=== PATIENT | male | born 1985 | race Two or more races ===

== ENCOUNTER 2025-01-14 16:28 | Inpatient (IN) | payer OTHER, SELFPAY ==
--- OUTSIDE RECORDS SUMMARY | 2025-01-14 16:36 | XMS_ITS | Clinical Summary ---
Author Organization [employer] [facility] iance Address [address] [place] [address] Care Team Providers Care Practical Nursing Teacher Name Role Phone Madina Oropeza MD Primary Care Provider [phone] Nguyễn Laguerre MD Unavailable Allergies No known active allergies Medications divalproex (DEPAKOTE) 250 MG EC tabletIndication s:Bipolar affective disorder, remission status unspecified (HCC) Take 750 mg by mouth in the morning and 750 mg before bedtime. 5 Active OLANZapine (ZYPREXA) 15 MG tabletIndication s:Bipolar affective disorder, remission status unspecified (HCC) Take 15 mg by mouth nightly 5 Active QUEtiapine (SEROQUEL) 50 MG tablet Take 1 tablet by mouth at bedtime 30 tablet 5 Active diclofenac (VOLTAREN) 1 % GEL GelIndications:C hronic pain of both knees Apply 2 g topically in the morning and 2 g at noon and 2 g in the evening and 2 g before bedtime. 100 g 1 5 12/23/19 25 Active Problems Problem Noted Date Diagnosed Date Bipolar disorder 09/23/2024 Suicide ideation 09/23/2024 Encounters Date Type Department Care Team Description 10/16/2024 4:00 PM EDT Office Visit [facility] [address] [place] [address] Floor - [phone] [place] [address] Cass Germain APRN Evaluation 10/16/2024 Travel from Last 3 Months Family History Medical History Relation Comments Heart Disease Brother CHF No Known Problems Father Cancer - Other Maternal Grandmother breast canc er Heart Disease Mother s/p mitral valve replacement Diabetes Paternal Grandmother Relation Status Comments Brother Alive Father Alive Maternal Grandmother Mother Paternal Grandmother Son Alive Social History Tobacco Use Types Packs/Day Years Used Date Smoking Tobacco: Some Days Cigarettes Smokeless Tobacco: Never Tobacco Cessation:Counseling Given: Not Answered Comments:Occasionally Alcohol Use Standard Drinks/Week Comments Not Currently 0 (1 standard drink = 0.6 oz pur e alcohol) Sex and Gender Information Value Date Recorded Sex Assigned at Not on file Legal Sex Male 9:17 AM EST Gender Identity Male 07/25/2024 9:19 AM EST Sexual Orientation Straight 07/25/2024 9: 19 AM EST 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 Not on file Not on file Not on file Last Filed Vital Signs Vital Sign Reading Time Taken Comments Blood Pressure 121/73 10/03/2024 8:13 AM EDT Pulse 64 10/03/2024 8:13 AM EDT Temperature 36.6 C (97.9 F) 10/03/2024 8:13 AM EDT Respiratory Rate 16 10/03/2024 8:13 AM EDT Oxygen Saturation 99% 10/03/2024 8:13 AM EDT Inhaled Oxygen Concentration - - Weight 84.8 kg (187 lb) 09/23/2024 2:21 PM EDT Height 171 cm (5' 7.32 ) 09/23/2024 2:21 PM EDT Body Mass Index 29.01 09/23/2024 2:21 PM EDT Plan of Treatment Health Maintenance Due Date Last Done Comments HEALTH CARE PROXY 2002 TETANUS VACCINE (1 - Tdap) 2002 PNEUMOCOCCAL VACCINE SERIES (< 65) (1 of 2 - PCV) 2003 COVID-19 Vaccine (1 - season) 2024 INFLUENZA VACCINE (#1) 2025 Contraceptive Care Screening 09/23/2025 09/23/2024 Smoking/Tobacco Cessation Counseling 09/23/2025 09/23/2024 (Completed at [facility]) AWQ Questionnaire 10/16/2025 10/16/2024, 09/23/2024 LIPID SCREENING 09/23/2029 09/23/2024 ZOSTER VACCINE (1 of 2) 2034 HEP C SCREEN Completed 09/23/2024 HIV SCREENING Completed 09/23/2024 PHYSICAL EXAM Completed 09/23/2024 Procedures Procedure Name Priority Date/Time Associated Diagnosis Comments HEPATITIS C PCR QUAL TO QUANT Routine 09/23/2024 3:15 PM EDT Encounter to establish care HIV ANTIGEN ANTIBODY 5TH GEN Routine 09/23/2024 3:15 PM EDT Encounter to establish care HC LIPID PANEL Routine 09/23/2024 3:15 PM EDT Encounter to establish care from Last 3 Months or Most Recently Relevant to Health Maintenance Results * HIV ANTIGEN ANTIBODY 5TH GEN (09/23/2024 3:15 PM EDT) HIVAGAB QUALITATIVE NON-REAC TIVE NONREACTIVE [facility] Comment: This sample is negative for HIV-1 Antibody (Groups M and O), HIV-2 Antibody, and HIV-1 p24 Antigen. No further testing is required. The differentiation tests will be reported as Test Not Performed (TNP). HIV-1 ANTIBODY 5TH GEN TNP 0.00 - 0.99 INDEX [facility] HIV-2 ANTIBODY 5TH GEN TNP 0.00 - 0.99 INDEX [facility] HIV-1 ANTIGEN 5TH GEN TNP 0.00 - 0.99 INDEX [facility] HIV-1 ANTIBODY GEENIUS TNP [facility] HIV-2 ANTIBODY GEENIUS TNP [facility] HIV RESULT INTERPRETATION TNP [facility] 09/23/2024 3:15 PM EDT 09/23/2024 6:19 PM EDT Narrative [facility] - 09/24/2024 12:02 PM EDT PRIOR TO ORDERING, was verbal consent obtained? (Verbal consent by the patient or designee is REQUIR ED to order this test.)->YES Catia Rankin PA-C LABORATORY Final Re sult [facility] [address] [place] [address], [place] * HEPATITIS C PCR QUAL TO QUANT (09/23/2024 3:15 PM EDT) HEPATITIS C ANTIBODY NON-REACT RIAN NONREACTIVE [facility] 09/23/2024 3:15 PM EDT 09/23/2024 6:19 PM EDT Catia Rankin PA-C LABORATORY Final Re sult [facility] [address] [place] [address], [place] * (ABNORMAL) LIPID PANEL (09/23/2024 3:15 PM EDT) Cholesterol 162 0 - 239 mg/dL [facility] TRIGLYCERIDES 170(H) 0 - 150 mg/dL [facility] HIGH DENSITY LIPOPROTEIN 41 40 - 60 mg/dL [facility] LOW DENSITY LIPOPROTEIN DIRECT 97 0 - 189 mg/dL [facility] 09/23/2024 3:15 PM EDT 09/23/2024 6:19 PM EDT Catia Rankin PA-C LABORATORY Final Re sult Performing Organization Address City/[facility]/ZIP Co de Phone Number [facility] [address] [place] [address], from Last 3 Months or Most Recently Relevant to Health Maintenance [place] [address] [place] [address] [employer] [facility] Care Teams Practical Nursing Teacher Relationship Specialty Start Date End Date Madina Oropeza MD [address] [place] [id number] PCP - General Family Medicine 09/23/24 Nguyễn Laguerre MD [address] [place] [address], [address] [place] [address] PCP - Insurance PCP 09/23/24
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
[2025-01-14 16:50] VITALS: BP 139/99; PULSE 69; RESP 18; TEMP 36.1; O2SAT 98
[2025-01-14 17:40] VITALS: BMI 28.7
--- NOTE | 2025-01-14 18:17 | PC.ADMIT ---
Bev arrived from [facility] 16:45? on a CV for insomnia. He has a history of bipolar disorder, and one suicide attempt in 2018 via hanging. His medical history includes an umbilical hernia and chronic back pain and knee pain. Per the crisis evaluation, he presented multiple times over the course of three days due to inability to sleep. He wears sunglasses at all times. When asked he states that he does this because his eyes itch. He is currently euphoric, expansive, and disorganized. He is as cooperative as he can be, but limited by disorganization. When meeting with the road oiler and provider to start the admission process he was also attempting to play [employer]. He often repeats whatever is said to him and asks unusual questions like ?how many milliseconds did it take me to put away the game?? Whether he is speaking Sri Lankan or Portuguese (he is more comfortable in Portuguese at least for now), some of his remarks are nonsensical. He is aware of some things, like that the last hospital told him to take divalproex and olanzapine, and today?s date. While the report from the sending hospital stated no AVH, he stated upon arrival that he does hear 5 voices all the time, but that they do not command him to do things. He denies SI/HI, ?I love my life!? Skin check was normal. Tox was negative though he does endorse THC use. He is a smoker of an unknown quantity of cigarettes daily and is using nicotine gum. Bev is on 15 minute checks.
[2025-01-14 20:00] VITALS: BP 118/89; PULSE 96; RESP 16; TEMP 36.1; O2SAT 98
--- NOTE | 2025-01-14 22:30 | PC.NURSE ---
He is currently euphoric, expansive, and disorganized. He appears confused at times. He took his belongings and walk towards the exit door @ 2215.. Pt states I am going home however he was easily redirected and took PRN meds @ 2230.
[2025-01-15 08:00] VITALS: BP 146/83; PULSE 83; RESP 18; TEMP 35.7; O2SAT 98
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
[2025-01-15 08:32] LABS: Hemoglobin A1C 147.9697 umol/L; Total Hemoglobin (HGBA1C) 4048.4204 umol/L
[2025-01-15 08:42] LABS: Alanine Aminotransferase 34 U/L (0-40); Albumin Level 4.1 g/dL (3.5-5.0); Alkaline Phosphatase 89 U/L (39-117); Anion Gap 12 (12-20); Aspartate Amino Transferase 59 U/L (5-37); Blood Urea Nitrogen 13 mg/dL (9-16); Calcium 9.2 mg/dL (8.4-10.2); Carbon Dioxide 23 mmol/L (22-29); Chloride 109 mmol/L (96-108); Cholesterol 128 mg/dL (<200); Creatinine Clr Calc Pharmacy 124.1; Estimated Glomerular Filt Rate > 60; HDL Cholesterol 39 mg/dL (>40); Potassium 3.9 mmol/L (3.3-5.1); Sodium 140 mmol/L (135-145); Total Protein 6.7 g/dL (6.5-8.0); Triglycerides 185 mg/dL (<150)
[2025-01-15 08:58] LABS: Free T4 (Free Thyroxine) 1.21 ng/dL (0.71-1.85); Thyroid Stimulating Hormone 1.78 uIU/mL (0.32-4.0)
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
--- NOTE | 2025-01-15 13:07 | PC.NURSE ---
Zacarias was restrained for a blood draw to monitor serum levels of Michael?s order Depakote, liver function, and ammonia level. He refused to have the blood draw done, explaining that he is being held in the hospital and medicated against his will. This is accurate, as Zacarias is currently on Section 8 with Michael?s order medications. When he was told that he would need this lab work, he stated that we would need to call security as he would not consent to the treatment. Phlebotomy arrived on the unit, followed by security as suggested by the patient. He stated that he would not offer his arm but we would need to pull it out to take his blood. He accused the staff of being vampires. At 11:48 Security extended Zacarias? arm to allow for access to the vein. Zacarias made a loud, high pitched vocalization, startling staff. Due to his unpredictable behavior he was laid down on the bed with one staff member holding each limb. He did not resist the hold with any force but did continue to make high pitched vocalizations throughout. The blood draw was successful on the first attempt, the specimen was obtained, and Zacarias was immediately released. He appeared uninjured, did not complain of injury, and refused vital sign monitoring.
[2025-01-15] MEDS: Lidocaine 4 % Patch ADH..PATCH 1 PATCH TRANSDERMA (18:55)
[2025-01-15 20:00] VITALS: BP 128/83; PULSE 91; RESP 16; TEMP 36.4; O2SAT 99
[2025-01-15] MEDS: Divalproex Sodium ER 250 MG TAB.ER.24H 750 MG PO (20:59)
[2025-01-16 07:00] VITALS: BMI 29.9
[2025-01-16 08:00] VITALS: BP 137/89; PULSE 101; RESP 18; TEMP 36.5; O2SAT 97
--- NOTE | 2025-01-16 09:49 | HO.PSYCHPN ---
Subjective Subjective Date of Service: 01/16/25 Reason For Visit: Bipolar Subjective Notes: Conditional Voluntary Interim History: Patient interviewed by this provider and social services designee. Patient notes that he is feeling good. He feels safe in this environment. He recalls being contacted by the [employer] to be enlisted in the [employer]. He also recalls the homeless people trying to destroy the city; he wants to protect the city but does not want to harm the homeless individuals. He wants to go home to get back to his 2 jobs and caring for their 7-year-old child. He retracted his 3 day noticed today. He denies anxiety or depression. He denies SI/HI/AH/VH. Patient is Serbian speaking mostly. 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 Medication Compliance: Yes Side effects from medications: No Attending Groups: Intermittent Review of Systems Acute medical concerns: No Mental Status Exam Mental Status Exam Narrative: Appearance: Casually dressed, adequate hygiene Behavior: Calm and cooperative throughout the interview. Eye contact is appropriate, and there are no signs of psychomotor agitation or retardation Speech: Normal volume and prosody, talkative Thought process: logical and goal-directed Thought content: Linear, paranoia Mood: Calm Affect: Constricted SI:denies HI:denies VH/AH:none Delusions: Paranoid Insight/judgment: Impaired insight and judgment Memory/cog: Alert, oriented x 4. grossly intact to conversational testing Diagnostics Vital Signs (24Hr): Vital Signs - 24 hr 01/15/25 20:00 01/16/25 08:00 Temperature 97.6 F 97.7 F Pulse Rate 91 101 H Respiratory Rate 16 18 Blood Pressure 128/83 137/89 Pulse Oximetry 99 97 Oxygen Delivery Method Room Air Room Air BMI result Body Mass Index 28.7 Labs 01/15/25 07:41 Labs: Laboratory Results - last 48 hr 01/15/25 07:41 Sodium 140 Potassium 3.9 Chloride 109 H Carbon Dioxide 23 Anion Gap 12 BUN 13 Creatinine 0.79 Estim Creat Clear Calc 124.1 Estimated GFR > 60 Random Glucose 158 H Estimat Average Glucose 111 Hemoglobin A1c % 5.5 Calcium 9.2 Total Bilirubin 0.4 AST 59 H ALT 34 Alkaline Phosphatase 89 Total Protein 6.7 Albumin 4.1 Triglycerides 185 H Cholesterol 128 LDL Cholesterol, Calc 52 HDL Cholesterol 39 L TSH 1.78 Free T4 1.21 Medications Medications Current Medications Acetaminophen (Acetaminophen 325 Mg Tablet) 650 mg PO Q6H PRN PRN Reason: Headache/Pain, Scale 1-10 Last Admin: 01/15/25 20:59 Dose: 650 mg Al Hydroxide/Mg Hydroxide (Magnesium Hydrox/Alum Hydrox 30 Ml Oral.Susp) 30 ml PO Q6H PRN PRN Reason: Heartburn/Nausea Divalproex Sodium (Divalproex Sodium Er 250 Mg Tab.Er.24h) 750 mg PO BEDTIME JAGUAR Last Admin: 01/15/25 20:59 Dose: 750 mg Docusate Sodium (Docusate Sodium 100 Mg Capsule) 100 mg PO BID [facility] Last Admin: 01/16/25 08:30 Dose: 100 mg Hydroxyzine HCl (Hydroxyzine Hcl 25 Mg Tablet) 25 mg PO Q6H PRN PRN Reason: mild anxiety Last Admin: 01/14/25 22:21 Dose: 25 mg Lidocaine (Lidocaine 4 % Patch Adh..Patch) 1 patch TRANSDERMA DAILY PRN; Protocol PRN Reason: Lowe back pain Last Admin: 01/15/25 18:55 Dose: 1 patch Magnesium Hydroxide (Milk Of Magnesia 30 Ml Oral.Susp) 30 ml PO DAILY PRN PRN Reason: Constipation Nicotine (Nicotine 21 Mg Patch.Td24) 21 mg TRANSDERMA DAILY PRN PRN Reason: nicotine craving Nicotine Polacrilex (Nicotine Polacrilex 2 Mg Gum) 4 mg BUCCAL Q2H PRN PRN Reason: nicotine cravings Last Admin: 01/16/25 09:30 Dose: 4 mg Olanzapine (Olanzapine 5 Mg Tablet) 5 mg PO BID PRN PRN Reason: agitation Last Admin: 01/16/25 08:46 Dose: 5 mg Olanzapine (Olanzapine 10 Mg Tablet) 10 mg PO BEDTIME JAGUAR Last Admin: 01/15/25 20:59 Dose: 10 mg Trazodone HCl (Trazodone Hcl 50 Mg Tablet) 50 mg PO BEDTIME MRX1 PRN PRN Reason: Insomnia Last Admin: 01/15/25 20:59 Dose: 50 mg Allergies Allergies Allergy/AdvReac Type Severity Reaction Status Date / Time No Known Allergies Allergy Verified 01/14/25 16:39 Assessment & Plan Assessment & Plan (1) Bipolar I disorder: Status: Acute Code(s): F31.9 - Bipolar disorder, unspecified Plan Patient is a 39 yo male with hx of Bipolar disorder (r/o schizoaffective), who presents for manic episode. -no sleep for about a week, with excess energy [place] map and Map was telling him to do a few things like cleaning...then a series of things happened...the next morning a homeless person interaction...i was defending myself...he did like a ninja and he took out shackles and I had to deal with him; i was on a mission and the mission was i needed to eliminate the homeless, not kill them but to get them out of the station...voice told him so... the homeless are not the owners of the metro.... voice coming from the map...But then they [police] arrested me.. -hears gods voice, tells me what to do, read the bible, take care of kids -hx of depressive episodes -hx of Manic episodes: 6 days little sleep; lot of energy and walking non-stop, not eating, couldn't stop moving...behaviors were different than usual...waking up at night; it's affecting his relationship with 01/16: Patient notes that he is feeling good. He feels safe in this environment. He recalls being contacted by the [employer] to be enlisted in the [employer]. He also recalls the homeless people trying to destroy the city; he wants to protect the city but does not want to harm the homeless individuals. He wants to go home to get back to his 2 jobs and caring for their 7-year-old child. He retracted his 3 day noticed today. He denies anxiety or depression. He denies SI/HI/AH/VH. Continue current treatment regimen. PLAN cv q15 agrees to restart Depakote Agrees to restart zyprexa Patient educated on: therapeutic strategies Reason for continued inpatient stay Substantial Risk for: rapid decompensation Time Spent With Patient Time: Total time managing care of this patient today ____ minutes.
[2025-01-16] MEDS: Divalproex Sodium ER 250 MG TAB.ER.24H 750 MG PO (20:29)
[2025-01-16 20:43] VITALS: BP 142/81; PULSE 127; RESP 16; TEMP 35.8; O2SAT 98
[2025-01-17] MEDS: Milk of Magnesia 30 ML ORAL.SUSP PO (05:44)
[2025-01-17 08:00] VITALS: BP 129/93; PULSE 87; RESP 18; TEMP 36.4; O2SAT 96
--- NOTE | 2025-01-17 10:02 | HO.PSYCHPN ---
Subjective Subjective Date of Service: 01/17/25 Reason For Visit: Bipolar Interim History: met with pt; discussed with team; reviewed chart; seen with Personalized Living Manager (Tawanna) yesterday staff reports pt was intermittently not making sense, going on off on irrelevant tangents; today however, seems more linear Pt says he's excellent I saw beautiful sunrise. I feel strong to go and live my life... regarding map and mission to get rid of the homeless pt says that was a product of paranoia....that's not my job, that's the [employer] job... It happened [paranoia] because I was without sleep and i was with psychosis... thinks better since sleeping and medication depakote...only reason he stopped in past, was because he ran out of medications...says has pending appointment 01/24/25 this happens when he does not take his meds Mental Status Exam Mental Status Exam Narrative: Pt is alert and oriented; behavior is cooperative, friendly and calm; patient is not in distress; dressed in casual attire with adequate grooming and hygiene; mood is described as excellent and affect congruent; eye contact appropriate; Speech is normal rate, volume and prosody and not pressured; no psychomotor agitation/retardation present; thought process is more organized and goal directed; Thought content is on tx; denies paranoid ideations; denies any SI/HI. Denies AVH and does not seem to be internally preoccupied. Patients insight and judgment improving. Diagnostics Vital Signs (24Hr): Vital Signs - 24 hr 01/16/25 20:43 01/17/25 08:00 Temperature 96.5 F L 97.5 F Pulse Rate 127 H 87 Respiratory Rate 16 18 Blood Pressure 142/81 H 129/93 H Pulse Oximetry 98 96 Oxygen Delivery Method Room Air Room Air BMI result Body Mass Index 29.9 Labs 01/15/25 07:41 Medications Medications Current Medications Acetaminophen (Acetaminophen 325 Mg Tablet) 650 mg PO Q6H PRN PRN Reason: Headache/Pain, Scale 1-10 Last Admin: 01/15/25 20:59 Dose: 650 mg Al Hydroxide/Mg Hydroxide (Magnesium Hydrox/Alum Hydrox 30 Ml Oral.Susp) 30 ml PO Q6H PRN PRN Reason: Heartburn/Nausea Divalproex Sodium (Divalproex Sodium Er 250 Mg Tab.Er.24h) 750 mg PO BEDTIME JAGUAR Last Admin: 01/16/25 20:29 Dose: 750 mg Docusate Sodium (Docusate Sodium 100 Mg Capsule) 100 mg PO BID JAGUAR Last Admin: 01/17/25 08:41 Dose: 100 mg Hydroxyzine HCl (Hydroxyzine Hcl 25 Mg Tablet) 25 mg PO Q6H PRN PRN Reason: mild anxiety Last Admin: 01/14/25 22:21 Dose: 25 mg Lidocaine (Lidocaine 4 % Patch Adh..Patch) 1 patch TRANSDERMA DAILY PRN; Protocol PRN Reason: Lowe back pain Last Admin: 01/15/25 18:55 Dose: 1 patch Magnesium Hydroxide (Milk Of Magnesia 30 Ml Oral.Susp) 30 ml PO DAILY PRN PRN Reason: Constipation Last Admin: 01/17/25 05:44 Dose: 30 ml Nicotine (Nicotine 21 Mg Patch.Td24) 21 mg TRANSDERMA DAILY PRN PRN Reason: nicotine craving Nicotine Polacrilex (Nicotine Polacrilex 2 Mg Gum) 4 mg BUCCAL Q2H PRN PRN Reason: nicotine cravings Last Admin: 01/17/25 07:02 Dose: 4 mg Olanzapine (Olanzapine 5 Mg Tablet) 5 mg PO BID PRN PRN Reason: agitation Last Admin: 01/16/25 08:46 Dose: 5 mg Olanzapine (Olanzapine 10 Mg Tablet) 10 mg PO BEDTIME JAGUAR Last Admin: 01/16/25 20:30 Dose: 10 mg Trazodone HCl (Trazodone Hcl 50 Mg Tablet) 50 mg PO BEDTIME MRX1 PRN PRN Reason: Insomnia Last Admin: 01/16/25 20:30 Dose: 50 mg Allergies Allergies Allergy/AdvReac Type Severity Reaction Status Date / Time No Known Allergies Allergy Verified 01/14/25 16:39 Assessment & Plan Assessment & Plan (1) Bipolar I disorder: Status: Acute Code(s): F31.9 - Bipolar disorder, unspecified Plan Patient is a 39 yo male with hx of Bipolar disorder (r/o schizoaffective), who presents for manic episode. -no sleep for about a week, with excess energy [place], [place] map and Map was telling him to do a few things like cleaning...then a series of things happened...the next morning a homeless person interaction...i was defending myself...he did like a ninja and he took out shackles and I had to deal with him; i was on a mission and the mission was i needed to eliminate the homeless, not kill them but to get them out of the station...voice told him so... the homeless are not the owners of the [place].... voice coming from the map...But then they [police] arrested me.. -hears gods voice, tells me what to do, read the bible, take care of kids -hx of depressive episodes -hx of Manic episodes: 6 days little sleep; lot of energy and walking non-stop, not eating, couldn't stop moving...behaviors were different than usual...waking up at night; it's affecting his relationship with HOSPITAL COURSE: 01/16: Patient notes that he is feeling good. He feels safe in this environment. He recalls being contacted by the [employer] to be enlisted in the [employer]. He also recalls the homeless people trying to destroy the city; he wants to protect the city but does not want to harm the homeless individuals. He wants to go home to get back to his 2 jobs and caring for their 7-year-old child. He retracted his 3 day noticed today. He denies anxiety or depression. He denies SI/HI/AH/VH. Continue current treatment regimen. 01/17 yesterday staff reports pt was intermittently not making sense, going on off on irrelevant tangents and with grandiose/paranoid ideations; today however, seems more linear Pt says he's excellent I saw beautiful sunrise. I feel strong to go and live my life... Regarding map and mission to get rid of the homeless pt says that was a product of paranoia....that's not my job, that's the [employer] job... It happened [paranoia] because I was without sleep and i was with psychosis... He thinks better since sleeping and medication depakote...only reason he stopped in past, was because he ran out of medications...says has pending appointment 01/24/25 - provided collateral and says this happens when he does not take his meds Impression: seems to be doing better but it's still early on and first day; will get labs and monitor. If pt remains stable, will proceed with discharge plans PLAN cv q15 Depakote ER 750mg qhs -labs ordrered Zyprexa 10mg qhs Patient educated on: diagnosis, medication risk/benefits and therapeutic strategies Informed Consent: understands Reason for continued inpatient stay Substantial Risk for: stable for discharge, rapid decompensation and med/psych decompensation Time Spent With Patient Time: Total time managing care of this patient today ____ minutes.
[2025-01-17 20:00] VITALS: BP 134/85; PULSE 112; TEMP 35.8; O2SAT 96
[2025-01-17] MEDS: Divalproex Sodium ER 250 MG TAB.ER.24H 750 MG PO (21:03)
[2025-01-18 08:00] VITALS: BP 138/88; PULSE 96; RESP 18; TEMP 36.4; O2SAT 97
[2025-01-18 08:40] LABS: Ammonia 30 umol/L (13-55)
[2025-01-18 09:12] LABS: Alanine Aminotransferase 56 U/L (0-40); Albumin Level 4.3 g/dL (3.5-5.0); Alkaline Phosphatase 80 U/L (39-117); Aspartate Amino Transferase 39 U/L (5-37); Total Protein 7.3 g/dL (6.5-8.0)
--- NOTE | 2025-01-18 17:34 | HO.PSYCHPN ---
Subjective Subjective Date of Service: 01/18/25 Reason For Visit: Bipolar Interim History: Seen with educational sign language interpreter. Patient has been calmer and less pressured. More linear. Reports he feels better. Later however, started talking about being accepted to the [employer] but that there was a lady from the [employer] that took him to [facility] to observe different things and that she changed her mind . He still believes however that he has a letter showing he was accepted. He has some insight and says I wasn't sleeping and that causes psychosis. Review of Systems Review of Systems Denies any shortness of breath, chest pain, dizziness, lightheadedness, abdominal pain or discomfort, nausea vomiting or diarrhea. Reports that he does not see well, needs glasses, reports occasional constipation. Mental Status Exam Mental Status Exam Narrative: Pt is alert and oriented; behavior is cooperative, friendly and calm; patient is not in distress; dressed in casual attire with adequate grooming and hygiene; mood is described as excellent and affect congruent; eye contact appropriate; Speech is normal rate, volume and prosody and not pressured; no psychomotor agitation/retardation present; thought process is more organized and goal directed; Thought content is on tx; denies paranoid ideations; denies any SI/HI. Denies AVH and does not seem to be internally preoccupied. Patients insight and judgment improving. Diagnostics Vital Signs (24Hr): Vital Signs - 24 hr 01/17/25 20:00 01/18/25 08:00 Temperature 96.5 F L 97.6 F Pulse Rate 112 H 96 Respiratory Rate 18 Blood Pressure 134/85 138/88 Pulse Oximetry 96 97 Oxygen Delivery Method Room Air Room Air BMI result Body Mass Index 29.9 Labs 01/15/25 07:41 Labs: Laboratory Results - last 48 hr 01/18/25 08:02 Total Bilirubin 0.2 Direct Bilirubin < 0.2 AST 39 H ALT 56 H Alkaline Phosphatase 80 Ammonia 30 Total Protein 7.3 Albumin 4.3 Valproic Acid 30.1 L Medications Medications Current Medications Acetaminophen (Acetaminophen 325 Mg Tablet) 650 mg PO Q6H PRN PRN Reason: Headache/Pain, Scale 1-10 Last Admin: 01/18/25 10:43 Dose: 650 mg Al Hydroxide/Mg Hydroxide (Magnesium Hydrox/Alum Hydrox 30 Ml Oral.Susp) 30 ml PO Q6H PRN PRN Reason: Heartburn/Nausea Capsaicin (Capsaicin 0.025% Cream 60 Gm Tube) 1 appl TOPICAL TID PRN; Protocol PRN Reason: Pain, Moderate(Pain Scale 4-6) Divalproex Sodium (Divalproex Sodium Er 250 Mg Tab.Er.24h) 750 mg PO BEDTIME JAGUAR Last Admin: 01/17/25 21:03 Dose: 750 mg Docusate Sodium (Docusate Sodium 100 Mg Capsule) 100 mg PO BID JAGUAR Last Admin: 01/18/25 08:41 Dose: 100 mg Hydroxyzine HCl (Hydroxyzine Hcl 25 Mg Tablet) 25 mg PO Q6H PRN PRN Reason: mild anxiety Last Admin: 01/14/25 22:21 Dose: 25 mg Lidocaine (Lidocaine 4 % Patch Adh..Patch) 1 patch TRANSDERMA DAILY PRN; Protocol PRN Reason: Lowe back pain Last Admin: 01/15/25 18:55 Dose: 1 patch Magnesium Hydroxide (Milk Of Magnesia 30 Ml Oral.Susp) 30 ml PO DAILY PRN PRN Reason: Constipation Last Admin: 01/17/25 05:44 Dose: 30 ml Nicotine (Nicotine 21 Mg Patch.Td24) 21 mg TRANSDERMA DAILY PRN PRN Reason: nicotine craving Nicotine Polacrilex (Nicotine Polacrilex 2 Mg Gum) 4 mg BUCCAL Q2H PRN PRN Reason: nicotine cravings Last Admin: 01/18/25 16:00 Dose: 4 mg Olanzapine (Olanzapine 5 Mg Tablet) 5 mg PO BID PRN PRN Reason: agitation Last Admin: 01/16/25 08:46 Dose: 5 mg Olanzapine (Olanzapine 10 Mg Tablet) 10 mg PO BEDTIME JAGUAR Last Admin: 01/17/25 21:03 Dose: 10 mg Trazodone HCl (Trazodone Hcl 50 Mg Tablet) 50 mg PO BEDTIME MRX1 PRN PRN Reason: Insomnia Last Admin: 01/17/25 21:03 Dose: 50 mg Allergies Allergies Allergy/AdvReac Type Severity Reaction Status Date / Time No Known Allergies Allergy Verified 01/14/25 16:39 Assessment & Plan Assessment & Plan (1) Bipolar I disorder: Status: Acute Code(s): F31.9 - Bipolar disorder, unspecified Plan Patient is a 39 yo male with hx of Bipolar disorder (r/o schizoaffective), who presents for manic episode. -no sleep for about a week, with excess energy [place], looking at map and Map was telling him to do a few things like cleaning...then a series of things happened...the next morning a homeless person interaction...i was defending myself...he did like a ninja and he took out shackles and I had to deal with him; i was on a mission and the mission was i needed to eliminate the homeless, not kill them but to get them out of the station...voice told him so... the homeless are not the owners of the [place].... voice coming from the map...But then they [police] arrested me.. -hears gods voice, tells me what to do, read the bible, take care of kids -hx of depressive episodes -hx of Manic episodes: 6 days little sleep; lot of energy and walking non-stop, not eating, couldn't stop moving...behaviors were different than usual...waking up at night; it's affecting his relationship with HOSPITAL COURSE: 01/16: Patient notes that he is feeling good. He feels safe in this environment. He recalls being contacted by the [employer] to be enlisted in the [employer]. He also recalls the homeless people trying to destroy the city; he wants to protect the city but does not want to harm the homeless individuals. He wants to go home to get back to his 2 jobs and caring for their 7-year-old child. He retracted his 3 day noticed today. He denies anxiety or depression. He denies SI/HI/AH/VH. Continue current treatment regimen. 01/17 yesterday staff reports pt was intermittently not making sense, going on off on irrelevant tangents and with grandiose/paranoid ideations; today however, seems more linear Pt says he's excellent I saw beautiful sunrise. I feel strong to go and live my life... Regarding map and mission to get rid of the homeless pt says that was a product of paranoia....that's not my job, that's the [employer] job... It happened [paranoia] because I was without sleep and i was with psychosis... He thinks better since sleeping and medication depakote...only reason he stopped in past, was because he ran out of medications...says has pending appointment 01/24/25 - provided collateral and says this happens when he does not take his meds Impression: seems to be doing better but it's still early on and first day; will get labs and monitor. If pt remains stable, will proceed with discharge plans 01/18: Improving but remains delusional. Continue current management and treatment plan. PLAN cv q15 Depakote ER 750mg qhs -labs ordrered Zyprexa 10mg qhs Reason for continued inpatient stay Substantial Risk for: inability to function and rapid decompensation Time Spent With Patient Time: Total time managing care of this patient today ____ minutes.
[2025-01-18 19:43] VITALS: BP 146/96; PULSE 107; TEMP 36.1; O2SAT 97
[2025-01-18] MEDS: Divalproex Sodium ER 250 MG TAB.ER.24H 750 MG PO (20:20)
[2025-01-19 08:00] VITALS: BP 132/86; PULSE 94; RESP 18; TEMP 35.6; O2SAT 97
--- NOTE | 2025-01-19 09:22 | HO.PSYCHPN ---
Subjective Subjective Date of Service: 01/19/25 Reason For Visit: Bipolar Interim History: Seen with command and control. Doing well. Calm and cooperative. Euthymic mood. Linear and organized. Says the psychosis is gone . Sleep is good. No SI/HI/AVH. Review of Systems Review of Systems Denies any shortness of breath, chest pain, dizziness, lightheadedness, abdominal pain or discomfort, nausea vomiting or diarrhea. Reports that he does not see well, needs glasses, reports occasional constipation. Mental Status Exam Mental Status Exam Narrative: Pt is alert and oriented; behavior is cooperative, friendly and calm; patient is not in distress; dressed in casual attire with adequate grooming and hygiene; mood is described as excellent and affect congruent; eye contact appropriate; Speech is normal rate, volume and prosody and not pressured; no psychomotor agitation/retardation present; thought process is more organized and goal directed; Thought content is on tx; denies paranoid ideations; denies any SI/HI. Denies AVH and does not seem to be internally preoccupied. Patients insight and judgment improving. Diagnostics Vital Signs (24Hr): Vital Signs - 24 hr 01/18/25 19:43 01/19/25 08:00 Temperature 96.9 F 96.1 F L Pulse Rate 107 H 94 Respiratory Rate 18 Blood Pressure 146/96 H 132/86 Pulse Oximetry 97 97 Oxygen Delivery Method Room Air Room Air BMI result Body Mass Index 29.9 Labs 01/15/25 07:41 Labs: Laboratory Results - last 48 hr 01/18/25 08:02 Total Bilirubin 0.2 Direct Bilirubin < 0.2 AST 39 H ALT 56 H Alkaline Phosphatase 80 Ammonia 30 Total Protein 7.3 Albumin 4.3 Valproic Acid 30.1 L Medications Medications Current Medications Acetaminophen (Acetaminophen 325 Mg Tablet) 650 mg PO Q6H PRN PRN Reason: Headache/Pain, Scale 1-10 Last Admin: 01/18/25 10:43 Dose: 650 mg Al Hydroxide/Mg Hydroxide (Magnesium Hydrox/Alum Hydrox 30 Ml Oral.Susp) 30 ml PO Q6H PRN PRN Reason: Heartburn/Nausea Capsaicin (Capsaicin 0.025% Cream 60 Gm Tube) 1 appl TOPICAL TID PRN; Protocol PRN Reason: Pain, Moderate(Pain Scale 4-6) Divalproex Sodium (Divalproex Sodium Er 250 Mg Tab.Er.24h) 750 mg PO BEDTIME [facility] Last Admin: 01/18/25 20:20 Dose: 750 mg Docusate Sodium (Docusate Sodium 100 Mg Capsule) 100 mg PO BID JAGUAR Last Admin: 01/19/25 08:16 Dose: 100 mg Hydroxyzine HCl (Hydroxyzine Hcl 25 Mg Tablet) 25 mg PO Q6H PRN PRN Reason: mild anxiety Last Admin: 01/18/25 20:20 Dose: 25 mg Lidocaine (Lidocaine 4 % Patch Adh..Patch) 1 patch TRANSDERMA DAILY PRN; Protocol PRN Reason: Lowe back pain Last Admin: 01/15/25 18:55 Dose: 1 patch Magnesium Hydroxide (Milk Of Magnesia 30 Ml Oral.Susp) 30 ml PO DAILY PRN PRN Reason: Constipation Last Admin: 01/17/25 05:44 Dose: 30 ml Nicotine (Nicotine 21 Mg Patch.Td24) 21 mg TRANSDERMA DAILY PRN PRN Reason: nicotine craving Nicotine Polacrilex (Nicotine Polacrilex 2 Mg Gum) 4 mg BUCCAL Q2H PRN PRN Reason: nicotine cravings Last Admin: 01/19/25 09:03 Dose: 4 mg Olanzapine (Olanzapine 5 Mg Tablet) 5 mg PO BID PRN PRN Reason: agitation Last Admin: 01/16/25 08:46 Dose: 5 mg Olanzapine (Olanzapine 10 Mg Tablet) 10 mg PO BEDTIME JAGUAR Last Admin: 01/18/25 20:20 Dose: 10 mg Trazodone HCl (Trazodone Hcl 50 Mg Tablet) 50 mg PO BEDTIME MRX1 PRN PRN Reason: Insomnia Last Admin: 01/18/25 20:20 Dose: 50 mg Allergies Allergies Allergy/AdvReac Type Severity Reaction Status Date / Time No Known Allergies Allergy Verified 01/14/25 16:39 Assessment & Plan Assessment & Plan (1) Bipolar I disorder: Status: Acute Code(s): F31.9 - Bipolar disorder, unspecified Plan Patient is a 39 yo male with hx of Bipolar disorder (r/o schizoaffective), who presents for manic episode. -no sleep for about a week, with excess energy [place] and Map was telling him to do a few things like cleaning...then a series of things happened...the next morning a homeless person interaction...i was defending myself...he did like a ninja and he took out shackles and I had to deal with him; i was on a mission and the mission was i needed to eliminate the homeless, not kill them but to get them out of the station...voice told him so... the homeless are not the owners of the [place].... voice coming from the map...But then they [police] arrested me.. -hears gods voice, tells me what to do, read the bible, take care of kids -hx of depressive episodes -hx of Manic episodes: 6 days little sleep; lot of energy and walking non-stop, not eating, couldn't stop moving...behaviors were different than usual...waking up at night; it's affecting his relationship with HOSPITAL COURSE: 01/16: Patient notes that he is feeling good. He feels safe in this environment. He recalls being contacted by the [employer] to be enlisted in the [employer]. He also recalls the homeless people trying to destroy the city; he wants to protect the city but does not want to harm the homeless individuals. He wants to go home to get back to his 2 jobs and caring for their 7-year-old child. He retracted his 3 day noticed today. He denies anxiety or depression. He denies SI/HI/AH/VH. Continue current treatment regimen. 01/17 yesterday staff reports pt was intermittently not making sense, going on off on irrelevant tangents and with grandiose/paranoid ideations; today however, seems more linear Pt says he's excellent I saw beautiful sunrise. I feel strong to go and live my life... Regarding map and mission to get rid of the homeless pt says that was a product of paranoia....that's not my job, that's the [email or web address] job... It happened [paranoia] because I was without sleep and i was with psychosis... He thinks better since sleeping and medication depakote...only reason he stopped in past, was because he ran out of medications...says has pending appointment 01/24/25 - provided collateral and says this happens when he does not take his meds Impression: seems to be doing better but it's still early on and first day; will get labs and monitor. If pt remains stable, will proceed with discharge plans 01/18: Improving but remains delusional. Continue current management and treatment plan. 01/19: continue current management and treatment plan. Improved. PLAN cv q15 Depakote ER 750mg qhs -labs ordrered Zyprexa 10mg qhs Reason for continued inpatient stay Substantial Risk for: inability to function and rapid decompensation Time Spent With Patient Time: Total time managing care of this patient today ____ minutes.
[2025-01-19 19:45] VITALS: BP 133/90; PULSE 112; RESP 15; TEMP 36.1; O2SAT 97
[2025-01-19] MEDS: Divalproex Sodium ER 250 MG TAB.ER.24H 750 MG PO (20:22)
[2025-01-20 08:00] VITALS: BP 142/86; PULSE 94; RESP 18; TEMP 36.6; O2SAT 99
[2025-01-20 20:00] VITALS: BP 132/87; PULSE 106; TEMP 36.6; O2SAT 97
[2025-01-20] MEDS: Divalproex Sodium ER 250 MG TAB.ER.24H 750 MG PO (20:33)
--- NOTE | 2025-01-20 22:49 | HO.PSYCHPN ---
Subjective Subjective Date of Service: 01/20/25 Reason For Visit: Bipolar Subjective Notes: Conditional Voluntary Healthcare Proxy: No Guardianship: No Medical Problems Affecting Mental Status: No Interim History: Medical record and nursing notes reviewed; case discussed during rounds with team/nursing staff, and met with patient for supportive therapy/psychoeducation, as well as medication management. Patient slept for 7+ hours, compliant with medications, denies side effects. Denies paranoid, voices or safety concerns.. Denies anxiety and depression, has been pacing listen to music as a coping skills. Mood is pretty good. Patient met with psychiatric social worker supervisor this provider in the presence of paraprofessional interpreter. Review discharge plan, review appointment, review medication sent to pharmacy, educate patient on continue with medication consistently and to follow-up appointments. He is receptive to the plan. Medication Compliance: Yes Side effects from medications: No Attending Groups: Intermittent Review of Systems Medical Review of Systems: unchanged Review of Systems Review of Systems Constitutional: Denies fatigue and Denies fever(s) Cardiovascular: Denies chest pain and Denies dyspnea Respiratory: Denies dyspnea Gastrointestinal: Denies abdominal pain Psychiatric: denies suicidal ideation Endocrine: Denies fatigue Yes all other systems are reviewed and are negative Mental Status Exam Mental Status Exam Narrative: Patient presents well-groomed, casually dressed. Affect is euthymic with full range. Speech is clear and coherent. Thought process is linear and logical. Thought content is appropriate and relevant. Patient denies suicidal or homicidal ideation intent or plan. No overt psychotic symptoms elicited. Insight and judgment are improving. Diagnostics Vital Signs (24Hr): Vital Signs - 24 hr 01/20/25 08:00 01/20/25 20:00 Temperature 97.8 F 97.8 F Pulse Rate 94 106 H Respiratory Rate 18 Blood Pressure 142/86 H 132/87 Pulse Oximetry 99 97 Oxygen Delivery Method Room Air Room Air BMI result Body Mass Index 29.9 Labs 01/15/25 07:41 Medications Medications Current Medications Acetaminophen (Acetaminophen 325 Mg Tablet) 650 mg PO Q6H PRN PRN Reason: Headache/Pain, Scale 1-10 Last Admin: 01/18/25 10:43 Dose: 650 mg Al Hydroxide/Mg Hydroxide (Magnesium Hydrox/Alum Hydrox 30 Ml Oral.Susp) 30 ml PO Q6H PRN PRN Reason: Heartburn/Nausea Capsaicin (Capsaicin 0.025% Cream 60 Gm Tube) 1 appl TOPICAL TID PRN; Protocol PRN Reason: Pain, Moderate(Pain Scale 4-6) Divalproex Sodium (Divalproex Sodium Er 250 Mg Tab.Er.24h) 750 mg PO BEDTIME JAGUAR Last Admin: 01/20/25 20:33 Dose: 750 mg Docusate Sodium (Docusate Sodium 100 Mg Capsule) 100 mg PO BID JAGUAR Last Admin: 01/20/25 20:33 Dose: 100 mg Hydroxyzine HCl (Hydroxyzine Hcl 25 Mg Tablet) 25 mg PO Q6H PRN PRN Reason: mild anxiety Last Admin: 01/18/25 20:20 Dose: 25 mg Lidocaine (Lidocaine 4 % Patch Adh..Patch) 1 patch TRANSDERMA DAILY PRN; Protocol PRN Reason: Lowe back pain Last Admin: 01/15/25 18:55 Dose: 1 patch Magnesium Hydroxide (Milk Of Magnesia 30 Ml Oral.Susp) 30 ml PO DAILY PRN PRN Reason: Constipation Last Admin: 01/17/25 05:44 Dose: 30 ml Nicotine (Nicotine 21 Mg Patch.Td24) 21 mg TRANSDERMA DAILY PRN PRN Reason: nicotine craving Nicotine Polacrilex (Nicotine Polacrilex 2 Mg Gum) 4 mg BUCCAL Q2H PRN PRN Reason: nicotine cravings Last Admin: 01/20/25 20:35 Dose: 4 mg Olanzapine (Olanzapine 5 Mg Tablet) 5 mg PO BID PRN PRN Reason: agitation Last Admin: 01/16/25 08:46 Dose: 5 mg Olanzapine (Olanzapine 10 Mg Tablet) 10 mg PO BEDTIME JAGUAR Last Admin: 01/20/25 20:33 Dose: 10 mg Trazodone HCl (Trazodone Hcl 50 Mg Tablet) 50 mg PO BEDTIME MRX1 PRN PRN Reason: Insomnia Last Admin: 01/20/25 20:33 Dose: 50 mg Allergies Allergies Allergy/AdvReac Type Severity Reaction Status Date / Time No Known Allergies Allergy Verified 01/14/25 16:39 Assessment & Plan Assessment & Plan (1) Bipolar I disorder: Status: Acute Code(s): F31.9 - Bipolar disorder, unspecified Plan Patient is a 39 yo male with hx of Bipolar disorder (r/o schizoaffective), who presents for manic episode. -no sleep for about a week, with excess energy [place] at map and Map was telling him to do a few things like cleaning...then a series of things happened...the next morning a homeless person interaction...i was defending myself...he did like a ninja and he took out shackles and I had to deal with him; i was on a mission and the mission was i needed to eliminate the homeless, not kill them but to get them out of the station...voice told him so... [facility] voice coming from the map...But then they [police] arrested me.. -hears gods voice, tells me what to do, read the bible, take care of kids -hx of depressive episodes -hx of Manic episodes: 6 days little sleep; lot of energy and walking non-stop, not eating, couldn't stop moving...behaviors were different than usual...waking up at night; it's affecting his relationship with HOSPITAL COURSE: 01/16: Patient notes that he is feeling good. He feels safe in this environment. He recalls being contacted by the [employer] to be enlisted in the [employer]. He also recalls the homeless people trying to destroy the city; he wants to protect the city but does not want to harm the homeless individuals. He wants to go home to get back to his 2 jobs and caring for their 7-year-old child. He retracted his 3 day noticed today. He denies anxiety or depression. He denies SI/HI/AH/VH. Continue current treatment regimen. 01/17 yesterday staff reports pt was intermittently not making sense, going on off on irrelevant tangents and with grandiose/paranoid ideations; today however, seems more linear Pt says he's excellent I saw beautiful sunrise. I feel strong to go and live my life... Regarding map and mission to get rid of the homeless pt says that was a product of paranoia....that's not my job, that's the [employer] job... It happened [paranoia] because I was without sleep and i was with psychosis... He thinks better since sleeping and medication depakote...only reason he stopped in past, was because he ran out of medications...says has pending appointment 01/24/25 - provided collateral and says this happens when he does not take his meds Impression: seems to be doing better but it's still early on and first day; will get labs and monitor. If pt remains stable, will proceed with discharge plans 01/18: Improving but remains delusional. Continue current management and treatment plan. 01/19: continue current management and treatment plan. Improved. 01/20/25: Patient slept for 7+ hours, compliant with medications, denies side effects. Denies paranoid, voices or safety concerns.. Denies anxiety and depression, has been pacing listen to music as a coping skills. Mood is pretty good. Patient met with psychiatric social worker supervisor this provider in the presence of paraprofessional interpreter. Review discharge plan, review appointment, review medication sent to pharmacy, educate patient on continue with medication consistently and to follow-up appointments. He is receptive to the plan. Depakote level for tomorrow. Working on sending medication to preferred pharmacy for 30 day supply. PLAN cv q15. We will be discharged tomorrow January 21. Depakote ER 750mg qhs -labs ordrered for Depakote on January 21. Zyprexa 10mg qhs Patient educated on: diagnosis, medication risk/benefits and therapeutic strategies Informed Consent: understands Reason for continued inpatient stay Substantial Risk for: med/psych decompensation Time Spent With Patient Time: Total time managing care of this patient today ____ minutes.
[2025-01-21 08:00] VITALS: BP 133/90; PULSE 106; RESP 18; TEMP 36.4; O2SAT 97
--- NOTE | 2025-01-21 09:55 | PM.PSYDC ---
DS: Providers Provider Date of Service: 01/21/25 Date of admission: 01/14/25 16:28 Date of discharge: 01/21/25 Primary care physician: Unknown Physician Attending physician on admission: Enrique Stubbs Consults: 01/14/25 17:08 Consult to Hospitalist Routine Comment: Consulting Provider: [facility] Hospitalists Reason For Exam: New external admit- Need H&P Attending physician on discharge: Enrique Stubbs DS: Diagnosis Discharge Diagnosis (1) Bipolar I disorder: Status: Acute DS: Medications Discharge Medications Home Medications: Home Medications ?Medication ?Instructions ?Recorded ?Confirmed divalproex 500 mg tablet,delayed 500 mg PO BEDTIME 01/14/25 01/14/25 release Previous Rx's ?Medication ?Instructions ?Recorded divalproex 250 mg tablet,extended 750 mg (3 x 250 mg) PO BEDTIME 01/20/25 release 24 hr Mood #90 tabs docusate sodium 100 mg capsule 100 mg PO BID constipation #60 01/20/25 caps nicotine (polacrilex) 2 mg gum 4 mg buccal Q2H PRN nicotine 01/20/25 cravings #100 ea Data Data Completed and Pending Completed studies during hospitalization [Text1]: 01/15/25 01/18/25 01/21/25 07:41 08:02 07:46 Sodium 140 Potassium 3.9 Chloride 109 H Carbon Dioxide 23 Anion Gap 12 BUN 13 Creatinine 0.79 Estim Creat Clear Calc 124.1 Estimated GFR > 60 Random Glucose 158 H Estimat Average Glucose 111 Hemoglobin A1c % 5.5 Calcium 9.2 Total Bilirubin 0.4 0.2 Direct Bilirubin < 0.2 AST 59 H 39 H ALT 34 56 H Alkaline Phosphatase 89 80 Ammonia 30 Total Protein 6.7 7.3 Albumin 4.1 4.3 Triglycerides 185 H Cholesterol 128 LDL Cholesterol, Calc 52 HDL Cholesterol 39 L TSH 1.78 Free T4 1.21 Valproic Acid 30.1 L 30.7 L DS: Summary Hospital Course Hospital Course: Patient is a 39 yo male with hx of Bipolar disorder (r/o schizoaffective), who presents for manic episode. -no sleep for about a week, with excess energy [place] map and Map was telling him to do a few things like cleaning...then a series of things happened...the next morning a homeless person interaction...i was defending myself...he did like a ninja and he took out shackles and I had to deal with him; i was on a mission and the mission was i needed to eliminate the homeless, not kill them but to get them out of the station...voice told him so... the homeless are not the owners of the [place].... voice coming from the map...But then they [police] arrested me.. -hears gods voice, tells me what to do, read the bible, take care of kids -hx of depressive episodes -hx of Manic episodes: 6 days little sleep; lot of energy and walking non-stop, not eating, couldn't stop moving...behaviors were different than usual...waking up at night; it's affecting his relationship with HOSPITAL COURSE: 01/16: Patient notes that he is feeling good. He feels safe in this environment. He recalls being contacted by the [employer] to be enlisted in the [employer]. He also recalls the homeless people trying to destroy the city; he wants to protect the city but does not want to harm the homeless individuals. He wants to go home to get back to his 2 jobs and caring for their 7-year-old child. He retracted his 3 day noticed today. He denies anxiety or depression. He denies SI/HI/AH/VH. Continue current treatment regimen. 01/17 yesterday staff reports pt was intermittently not making sense, going on off on irrelevant tangents and with grandiose/paranoid ideations; today however, seems more linear Pt says he's excellent I saw beautiful sunrise. I feel strong to go and live my life... Regarding map and mission to get rid of the homeless pt says that was a product of paranoia....that's not my job, that's the [employer] job... It happened [paranoia] because I was without sleep and i was with psychosis... He thinks better since sleeping and medication depakote...only reason he stopped in past, was because he ran out of medications...says has pending appointment 01/24/25 - provided collateral and says this happens when he does not take his meds Impression: seems to be doing better but it's still early on and first day; will get labs and monitor. If pt remains stable, will proceed with discharge plans 01/18: Improving but remains delusional. Continue current management and treatment plan. 01/19: continue current management and treatment plan. Improved. 01/20/25: Patient slept for 7+ hours, compliant with medications, denies side effects. Denies paranoid, voices or safety concerns.. Denies anxiety and depression, has been pacing listen to music as a coping skills. Mood is pretty good. Patient met with long term care social worker this provider in the presence of electric blasting cap assembler. Review discharge plan, review appointment, review medication sent to pharmacy, educate patient on continue with medication consistently and to follow-up appointments. He is receptive to the plan. Depakote level for tomorrow. Working on sending medication to preferred pharmacy for 30 day supply. PLAN cv q15. We will be discharged tomorrow January 21. Depakote ER 750mg qhs -labs ordrered for Depakote on January 21. Zyprexa 10mg qhs Patient educated on: diagnosis, medication risk/benefits and therapeutic strategies Informed Consent: understands Reason for continued inpatient stay Substantial Risk for: med/psych decompensation Time Spent with Patient Time attestation: Total time managing care of this patient today ____ minutes. Discharge Plan Discharge Anticipated Discharge Date/Time: 01/21/25 11:00 Patient Disposition: Home, Self-Care Discharge Diagnosis: Bipolar disorder Referrals: [facility] Psychiatry Initial Prabha Bonilla [Other] - 02/18/25 3:00 pm Referral Note: This is your initial evaluation with your medication provider. It is in-person. Social work is recommending a case management referral and therapy referral for pt. [facility] [Other] - 1 Week Referral Note: Free Urdu Classes at [facility] Morning Classes Monday through Monday 9:00 AM to 11:30 AM Afternoon Classes Monday through 12:00 PM to 3:00 PM Physician,Unknown J [Primary Care Provider, Medical] - 1 Week Discharge Medications: New nicotine (polacrilex) 2 mg Gum 4 mg buccal Q2H PRN (Reason: nicotine cravings) Qty: 100 0RF divalproex 250 mg Tablet Extended Release 24 Hr 750 mg PO BEDTIME Qty: 90 0RF docusate sodium 100 mg Capsule 100 mg PO BID Qty: 60 0RF olanzapine 10 mg tablet 10 mg PO BEDTIME Qty: 30 0RF Discontinued olanzapine 5 mg tablet 5 mg PO QD-BID divalproex 500 mg tablet,delayed release (DR/EC) 500 mg PO BEDTIME Diet: Regular diet Activity on Discharge: As tolerated Stand Alone Forms: Patient Portal Discharge page Print Language: Urdu Care Plan Goals: Maintain mood and safe behaviors Take medications as prescribed Continue to pursue sobriety Practice coping skills Continue with outpatient providers and reach out to them as needed Health Concerns: Mood stability and behaviors Sobriety Plan of Treatment: Follow up with your PCP, psychiatric provider and other outpatient providers regarding above concerns Take medications as prescribed Assessment: Assessment: Risk assessment at time of discharge: Patient was interviewed prior to discharge and found to be fully oriented and without any SI or HI. Patient has improved insight and judgment and wants to continue treatment. Patient is not in imminent risk of harm to self or others and has a safety plan that includes presenting to the closest ER or calling 911 if feeling unsafe. Patient has been observed closely by nursing and unit staff throughout admission; patient has not engaged in any behaviors that suggest dangerousness to self or others and has demonstrated appropriate behaviors and impulse control
--- NOTE | 2025-01-21 12:00 | PC.NURSE ---
Pt discharged from unit with all belongings. Portuguese speaking. Verified he understood all discharge instructions. Ambulated in steady gait and spoke in full clear sentences. Pt took Lyft home to [place].
== END 2025-01-21 11:52 | disposition home or self-care (01) | DRG 753 ==
PROVIDERS: Nurse Practitioner Psychiatric/Mental Health; Admitting Provider Psychiatry & Neurology Psychiatry; Visit Provider Colon & Rectal Surgery
DX: F31.9 Bipolar disorder, unspecified (principal); Z91.148 Patient's other noncompliance with medication regimen for other reason; F17.210 Nicotine dependence, cigarettes, uncomplicated; F19.91 Other psychoactive substance use, unspecified, in remission; Z71.6 Tobacco abuse counseling; Z91.51 Personal history of suicidal behavior; Z79.899 Other long term (current) drug therapy
CPT/HCPCS: 36415; 80053; 80061; 80076; 80164; 82140; 83036; 84439; 84443

== ENCOUNTER → 2025-01-14 16:28 | Outpatient (BNV) | payer OTHER, SELFPAY | PROVIDERS: Admitting Provider Psychiatry & Neurology Psychiatry; Visit Provider Psychiatry & Neurology Psychiatry | DX: F31.13 Bipolar disorder, current episode manic without psychotic features, severe (principal) | CPT/HCPCS: 90792; 99231 ==

== ENCOUNTER → 2025-01-14 16:28 | Outpatient (BNV) | payer OTHER, SELFPAY | PROVIDERS: Admitting Provider Psychiatry & Neurology Psychiatry; Visit Provider Nurse Practitioner Family | DX: F31.9 Bipolar disorder, unspecified (principal) | CPT/HCPCS: 99221 ==